=== PATIENT | male | born 1970 | race Caucasian/White ===

== ENCOUNTER 2018-02-03 04:16 | Emergency (ER) | payer OTHER ==
[~2018-02-03] VITALS: Ht 185.4 cm; Wt 86.2 kg
[~2018-02-03 04:16] MED LIST: IBUPROFEN800 M1 PO; PREDNISONE20 M1 PO; ULTRAM50 M1 PO
--- NOTE | 2018-02-03 04:59 | ED NECK/BACK PAIN COMPLAINT ---
History of Present Illness General Chief Complaint: Low Back Pain/Injury Stated Complaint: R SIDE BACK PAIN Source: patient, old records, friend Exam Limitations: no limitations Vital Signs & Intake/Output Vital Signs & Intake/Output Vital Signs Date Time Temp Pulse Resp B/P B/P Pulse O2 O2 Flow FiO2 Mean Ox Delivery Rate 02/03 0426 97.7 87 18 121/72 100 Room Air Allergies Uncoded Allergies: ?MITOCYCLINE (Intermediate, JOINT PAIN 11/04/15) Reconcile Medications Baclofen 10 MG TABLET 1-2 TAB PO TID PRN muscle strain Hydrocodone/Acetaminophen ([place] 5-325 Tablet) 5 MG-325 MG TABLET 1-2 TAB PO Q4-6 PRN PRN severe pain Ibuprofen 800 MG TABLET 1 TAB PO Q6PRN PRN pain Ibuprofen 600 MG TABLET 1 TAB PO Q6P PRN pain with food Prednisone 20 MG TABLET 1 TAB PO BID arthralgia Tramadol HCl (Ultram) 50 MG TABLET 1-2 TAB PO Q6PRN PRN severe pain Triage Note: PT TO ED C/O SCIATICA PAIN FOR 5 DAYS, GETTING WORSE. PAIN IN RT BUTTOCKS, SHOOTS DOWN LEG. TOOK 2 10 MG FLEXERIL BEFORE BED LAST NIGH. TOOK 800 MG MOTRIN AND ANOTHER 10 FLEXERIL AT 0300 THIS AM. "IT'S NOT HELPING" "DR RYDER SAYS I NEED SPINAL DECOMPRESSION" "IT TOOK ME 30 MINUTES TO GET OUT OF BED" Triage Nurses Notes Reviewed? 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 5 days prior to admission he complains of right low back pain sharp moderate to severe times radiating to his buttocks and upper and lower leg to foot. Prior to admission patient reports increase in severity with no relief from ibuprofen and cyclobenzaprine and difficulty ambulating. He denies injury fever chills nausea vomiting diarrhea abdominal pain chest pain shortness breath headache dysuria rash bleeding injury motor sensory function change in bowel bladder habit. Past History Travel History Traveled to [place] past 21 day No Medical History Any Pertinent Medical History? see below for history Cardiovascular: hyperlipidemia Renal: URINARY RETENTION Musculoskeletal: osteoarthritis, sciatica, PSORIASIS Surgical History Surgical History: non-contributory Psychosocial History What is your primary language Latvian Tobacco Use: Current Daily Use Daily Tobacco Use Amount/Type: => 5 Cigarettes daily ETOH Use: denies use Illicit Drug Use: denies illicit drug use Family History Hx Contributory? No Review of Systems Review of Systems Constitutional: Reports: no symptoms. Eyes: Reports: no symptoms. Ears, Nose, Throat, Mouth: Reports: no symptoms. Respiratory: Reports: no symptoms. Cardiovascular: Reports: no symptoms. Gastrointestinal/Abdominal: Reports: no symptoms. Musculoskeletal: Reports: see HPI, back pain. Skin: Reports: no symptoms. Neurological/Psychological: Reports: see HPI, numbness. All Other Systems: Reviewed and Negative Physical Exam Physical Exam General Appearance: well developed/nourished, alert, awake, anxious, severe distress Head: atraumatic, normal appearance Eyes: Bilateral: normal appearance, PERRL, EOMI, normal inspection. Ears, Nose, Throat, Mouth: hearing grossly normal, moist mucous membrane Neck: normal inspection, supple, full range of motion, normal alignment Respiratory: normal breath sounds, chest non-tender, no respiratory distress, quiet respiration, lungs clear Cardiovascular: regular rate/rhythm, normal peripheral pulses, norml femoral pulses equa Peripheral Pulses: 4+ carotid (R), 4+ carotid (L) Gastrointestinal: normal bowel sounds, soft, non-tender, no organomegaly Back: normal inspection, decreased range of motion, muscle spasm, no vertebral tenderness Extremities: normal range of motion Straight Leg Raising: Right: Pain at ____ degrees. Left: Pain at ____ degrees. Sensory: Medial Le: L4R, L4L. Top of Foot: 2: L5R, L5L. Sole of Foot: 2: SIR, KASEY. Motor: Deficit L4 Right: No Deficit L4 Left: No Deficit L5 Right: No Deficit L5 Left: No Deficit S1 Right: No Deficit S1 Right: No DTR: Deficit L4 Left: No Deficit L4 Right: No Deficit S1 Left: No Deficit S1 Right: No Patellar: 3: L4 Right, L4 Left. 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 Skin: intact, normal color, warm/dry Core Measures CVA/TIA Diagnosis: No Progress Differential Diagnosis: herniated disc, myofascial strain, sciatica Plan of Care: Orders Procedure Date/time Status CT LUMB SPINE WO IV CONTRAST 02/03 457 Active Current Medications Sig/August Start time Last Medication Dose Stop Time Status Admin Acetaminophen 1,000 MG ONCE ONE 02/03 500 UNVr (Ofirmev) 02/03 501 Dexamethasone 10 MG ONCE ONE 02/03 500 UNir (Decadron) 02/03 501 Lorazepam 1 MG ONCE ONE 02/03 500 UNVr (Ativan) 02/03 501 Morphine Sulfate 4 MG ONCE ONE 02/03 500 UNVr (MORPHINE SULFATE) 02/03 501 Diagnostic Imaging: Viewed by Me: CT Scan. Discussed w/RAD: CT Scan. Radiology Impression: Mild lower lumbar spine posterior disc bulges without significant neural foraminal compromise. No evidence for acute injury. Left unilateral L5 pars defect. Departure Departure Time of Disposition: 618 Disposition: HOME OR SELF CARE Condition: Stable Clinical Impression Primary Impression: Sciatica of right side associated with disorder of lumbar spine Referrals: David CHANDLER,Brant Hays (PCP/Family) Yasmin CHANDLER,Valerie Medina Call for neurosurgical follow up Eliza CHANDLER,Adam Call for orthopedic follow up Departure Forms: Customer Survey General Discharge Information RELEASE- WORK Prescriptions: Current Visit Scripts Ibuprofen 1 TAB PO Q6P PRN pain #50 TAB with food Baclofen 1-2 TAB PO TID PRN muscle strain #30 TAB Hydrocodone/Acetaminophen ([place] 5-325 Tablet) 1-2 TAB PO Q4-6 PRN PRN severe pain #15 TAB
--- NOTE | 2018-02-03 05:28 | CT SCAN REPORT ---
EXAMINATION: CT LUMBAR SPINE WITHOUT CONTRAST CLINICAL INFORMATION: Radiculopathy. Concern for disc protrusion. COMPARISON: None TECHNIQUE: Helical non-contrast CT images were obtained through the lumbar spine and 1.25 and 2.5 mm axial reconstructions were reviewed along with sagittal and coronal MPRs. Please note that MRI is a preferable modality for evaluation of the disc herniation. DLP: 558 mGy-cm FINDINGS: There is no abdominal or pelvic free fluid. The visualized portions of the kidneys are unremarkable without demonstrable hydronephrosis or nephrolithiasis. There are no acute fractures to the lumbar vertebra or visualized sacrum. There is a unilateral left L5 pars defect. The lumbar vertebra are in normal alignment. There is mild disc height loss at L5/S1. There are mild posterior disc bulges at L4/L5 and L5/S1. There is no significant neural foraminal compromise identified at these levels. IMPRESSION: Mild lower lumbar spine posterior disc bulges without significant neural foraminal compromise. No evidence for acute injury. Left unilateral L5 pars defect.
[2018-02-03] MEDS ORDERED: IBUPROFEN600 M1 PO (06:21)
[2018-02-03] MEDS ORDERED: NORCO 5-325 TA1 EACH PO (06:21)
[2018-02-03] MEDS ORDERED: BACLOFEN10 M1 PO (06:21)
[2018-02-03 06:57] VITALS: BP 102/68
== END 2018-02-03 06:59 ==
LOC: ERH 04:16
DX: M51.16 Intervertebral disc disorders with radiculopathy, lumbar region (principal); M54.5 Low back pain; F17.210 Nicotine dependence, cigarettes, uncomplicated
CPT/HCPCS: 96365; 96375; J0131